=== PATIENT | male | born 1970 | race Caucasian/White ===

== ENCOUNTER 2018-08-30 19:02 | Emergency (ER) | payer BC ==
[2018-08-30] MEDS ORDERED: Nitroglycerin TAB 0.4 MG* 0.4 MG TAB SL ONE (19:37)
[2018-08-30] MEDS ORDERED: Aspirin 81 mg CHEW TAB* 81 MG TAB.CHEW PO ONE (19:37)
--- NOTE | 2018-08-30 19:41 | UC ---
Cardiac HPI - HPI Summary HPI Summary: 2 DAYS OF MIDSTERNAL DULL CHEST PAIN AND INTERMITTENT SENSATION OF HIS HEART POUNDING. HAS ASSOCIATED SHORTNESS OF BREATH BUT DENIES NAUSEA, HEADACHE, SWEATS. PAIN DOES NOT CHANGE WITH ACTIVITY. HE CHECKED HIS BLOOD PRESSURE WITH A WRIST CUFF THIS MORNING AND IT WAS IN THE 200S OVER 100S. REPORTS SIMILAR EPISODES OF CHEST PAIN INTERMITTENTLY OVER THE PAST SEVERAL MONTHS HOWEVER WHEN THIS EPISODE PERSISTED AND HIS BLOOD PRESSURE WAS ELEVATED HE DECIDED TO COME IN. NO OFFICIAL DIAGNOSIS OF HYPERTENSION SO NO MEDS FOR BLOOD PRESSURE. - History of Current Complaint Chief Complaint: UCChestPain Stated Complaint: CHEST PAIN, AND HIGH BLOOD PRESSURE Time Seen by Provider: 08/30/18 19:11 Hx Obtained From: Patient, Family/Electrical Worker - MAUREEN Onset/Duration: Sudden Onset, Lasting Days - 2 DAYS, Still Present Timing: Constant Initial Severity: Moderate Current Severity: Moderate Pain Intensity: 2 Chest Pain Location: Mid Sternal Character: Dull/Aching Aggravating Factor(s): Nothing Alleviating Factor(s): Nothing Associated Signs & Symptoms: Positive: Chest Pain, SOB. Negative: Headaches, Dizziness, Nausea/Vomiting, Cough - Allergy/Home Medications Allergies/Adverse Reactions: Allergies Allergy/AdvReac Type Severity Reaction Status Date / Time No Known Allergies Allergy Verified 08/30/18 19:21 Home Medications: Home Medications Mesalamine DR CAP* [Mesalamine DR CAP* (formerly ASACOL TAB)*] 800 mg PO TID [History Confirmed 08/30/18] Omeprazole CAP (NF) [Prilosec CAP* 20 MG] 20 mg PO DAILY 08/30/18 [History Confirmed 08/30/18] PMH/Surg Hx/FS Hx/Imm Hx Other GI/ History: ULCERATIVE COLITIS - Surgical History Surgical History: Yes Surgery Procedure, Year, and Place: 02/2014 [place] [facility] [place] (AGE 11). 2013 left ear surgery - Family History Known Family History: Positive: Cardiac Disease - DAD - Social History Alcohol Use: Daily Alcohol Amount: 3-4 drinks per day Substance Use Type: None Smoking Status (MU): Former Smoker Amount Used/How Often: RARELY Length of Time of Smoking/Using Tobacco: SOCIALLY SINCE AGE 20 Review of Systems All Other Systems Reviewed And Are Negative: Yes Constitutional: Positive: Negative Skin: Positive: Negative Respiratory: Positive: Negative Cardiovascular: Positive: Palpitations, Chest Pain Gastrointestinal: Positive: Negative Neurological: Positive: Negative Physical Exam Triage Information Reviewed: Yes Appearance: Well-Appearing, No Pain Distress, Well-Nourished Vital Signs: Initial Vital Signs Temp 97.8 F 08/30/18 19:06 Pulse 77 08/30/18 19:06 Resp 16 08/30/18 19:06 BP 163/111 08/30/18 19:06 Pulse Ox 98 08/30/18 19:06 Vital Signs Reviewed: Yes Eyes: Positive: Conjunctiva Clear ENT: Positive: Hearing grossly normal, Pharynx normal, TMs normal - LEFT TM WITH POSTSURGICAL CHANGES Neck: Positive: Supple, Nontender, No Lymphadenopathy Respiratory Exam: Normal Cardiovascular Exam: Normal Abdomen Description: Positive: Soft Musculoskeletal: Positive: No Edema Neurological: Positive: Alert Psychological: Positive: Age Appropriate Behavior Skin: Negative: Rashes Diagnostics - EKG Cardiac Rate: NL - 73 BPM Cardiac Rhythm: Sinus: Normal Ectopy: None ST Segment: Normal - Clinical Impression Provider Diagnosis: Chest pain - Physician Notifications Discussed Patient Care With: Gopal Clemente - [place] [facility] [place] Time Discussed With Above Provider: 19:40 Instructed by Provider To: MD Will See In ED Discharge - Sign-Out/Discharge Documenting (check all that apply): Patient Departure All imaging exams completed and their final reports reviewed: No Studies - Discharge Plan Condition: Stable Disposition: TRANS HIGHER LVL OF CARE FAC Referrals: Piyush Davis MD [Primary Care Provider] - - Billing Disposition and Condition Condition: STABLE Disposition: Trans Higher Lvl of Care Fac
[2018-08-30 19:51] VITALS: BP 168/117
== END 2018-08-30 19:50 | disposition short-term general hospital (02) ==
LOC: UCEAST 19:02
DX: R07.89 Other chest pain (principal); Z87.891 Personal history of nicotine dependence
CPT/HCPCS: 99213; A9270-GY; G0463

== ENCOUNTER 2018-08-30 20:14 | Emergency (ER) | payer BC ==
[2018-08-30] MEDS ORDERED: Aspirin 81 mg CHEW TAB* 81 MG TAB.CHEW PO ONE (20:17)
--- NOTE | 2018-08-30 20:22 | ED ---
HPI Chest Pain - HPI Summary HPI Summary: This patient is a 48 year old M brought in by ambulance to [facility] with a chief complaint of mild, intermittent mid-sternal chest discomfort since 2 weeks ago. The patient reports that the pain became more constant in the last few days. The patient notes that he wears a wrist BP monitor and it was showing an elevated BP today. The patient rates the pain 2/10 in severity. Symptoms aggravated by nothing. Symptoms alleviated by nothing. Patient has hx cholecystectomy. - History of Current Complaint Hx Obtained From: Patient Onset/Duration: Started Weeks Ago, Atraumatic, Still Present, Worse Since - a few days ago Timing: Constant, Lasting Weeks Initial Severity: Mild Current Severity: Mild Chest Pain Location: Mid Sternal Chest Pain Radiates: No Aggravating Factor(s): Nothing Alleviating Factor(s): Nothing Associated Signs and Symptoms: Positive: Chest Pain - chest discomfort, Other: - elevated BP - Allergy/Home Medications Allergies/Adverse Reactions: Allergies Allergy/AdvReac Type Severity Reaction Status Date / Time No Known Allergies Allergy Verified 08/30/18 19:21 Home Medications: Home Medications Omeprazole 20 mg PO DAILY 08/30/18 [History Confirmed 08/30/18] PMH/Surg Hx/FS Hx/Imm Hx Endocrine/Hematology History: Denies: Hx Diabetes, Hx Thyroid Disease Cardiovascular History: Denies: Hx Hypertension Respiratory History: Denies: Hx Asthma, Hx Chronic Obstructive Pulmonary Disease (COPD) GI History: Reports: Other GI Disorders - COLITIS, CONTROL WITH MEDS Denies: Hx Ulcer Musculoskeletal History: Reports: Other Musculoskeletal History - RIGHT SHOULDER PAIN-UNKNOWN ETIOLOGY Sensory History: Reports: Hx Contacts or Glasses - CONTACTS, WILL WEAR GLASSES DAY OF SURGERY Denies: Hx Hearing Aid Opthamlomology History: Reports: Hx Contacts or Glasses - CONTACTS, WILL WEAR GLASSES DAY OF SURGERY Psychiatric History: Reports: Hx Anxiety - NO MEDS - Surgical History Surgery Procedure, Year, and Place: 02/2014 LAPAROSCOPIC APPENDECTOMY, [facility] – [place]. 1980 LEFT EAR SURGERY (AGE 11). 2013 left ear surgery. Cholecystectomy Hx Anesthesia Reactions: No Infectious Disease History: Denies: Hx Hepatitis, Hx Human Immunodeficiency Virus (HIV) - Family History Known Family History: Positive: Cardiac Disease - DAD, Diabetes - Dad - Social History Alcohol Use: Daily Alcohol Amount: 3-4 drinks per day Substance Use Type: Reports: None Smoking Status (MU): Former Smoker Amount Used/How Often: RARELY Length of Time of Smoking/Using Tobacco: SOCIALLY SINCE AGE 20 Review of Systems Negative: Fever Negative: Epistaxis Positive: Chest Pain - mid sternal chest discomfort, Other - elevated BP via wrist monitor Negative: Cough Negative: Vomiting All Other Systems Reviewed And Are Negative: Yes Physical Exam - Summary Physical Exam Summary: VITAL SIGNS: Reviewed. GENERAL: Patient is a well-developed and nourished MALE who is lying comfortable in the stretcher. Patient is not in any acute respiratory distress. HEAD AND FACE: No signs of trauma. No ecchymosis, hematomas or skull depressions. No sinus tenderness. EYES: PERRLA, EOMI x 2, No injected conjunctiva, no nystagmus. EARS: Hearing grossly intact. Ear canals and tympanic membranes are within normal limits. MOUTH: Oropharynx within normal limits. NECK: Supple, trachea is midline, no adenopathy, no JVD, no carotid bruit, no c- spine tenderness, neck with full ROM. CHEST: Symmetric, no tenderness at palpation LUNGS: Clear to auscultation bilaterally. No wheezing or crackles. CVS: Regular rate and rhythm, S1 and S2 present, no murmurs or gallops appreciated. ABDOMEN: Soft, non-tender. No signs of distention. No rebound no guarding, and no masses palpated. Bowel sounds are normal. EXTREMITIES: FROM in all major joints, no edema, no cyanosis or clubbing. NEURO: Alert and oriented x 3. No acute neurological deficits. Speech is normal and follows commands. SKIN: Dry and warm Triage Information Reviewed: Yes Vital Signs Reviewed: Yes Diagnostics - Laboratory Result Diagrams: 08/30/18 20:26 08/30/18 20:26 Lab Statement: Any lab studies that have been ordered have been reviewed, and results considered in the medical decision making process. - Radiology CXR Radiology Interpretation Completed By: ED Physician - Dr. Bourne, pending official report Summary of Radiographic Findings: Negative CXR - EKG 21:28 Cardiac Rate: NL - at 64 bpm EKG Rhythm: Sinus Rhythm ST Segment: Normal Ectopy: None Summary of EKG Findings: Sinus rhythm at [address] elevations and nml axis. Chest Pain Course/Dx - Course Assessment/Plan: Patient is a 48-year-old male who presents to the emergency department via ambulance with a chief complaint of having chest pain. Patient has no past medical history except for GERD. Family history significant for cardiac muscular disorders after the age of 60. The pain is not associated with exertion, denies any nausea vomiting diaphoresis, shortness of breath or dizziness. Blood work without any significant abnormality except for elevated AST and AST of 149/321 which probably secondary to his alcohol consumption every day. Troponin is 0.01. Chest x-ray impression: No acute pathology. EKG shows a normal sensory or without any sick elevations. Patient was given hydralazine for the high blood pressure. At this point the patient is more hemodynamically stable. The patient will be signed out to Dr. Nevarez to follow with the second troponin is negative the patient can be discharged home. Heart score is equal to 2. - Diagnoses Provider Diagnoses: Chest pain Discharge - Sign-Out/Discharge Documenting (check all that apply): Sign-Out Patient - upon provider shift change pending second troponin Signing out patient TO: Gopal Clemente Patient Received Moderate/Deep Sedation with Procedure: No - Discharge Plan Condition: Good Disposition: HOME Patient Education Materials: Chest Pain (ED) Referrals: Piyush Davis MD [Primary Care Provider] - 3 Days - Billing Disposition and Condition Condition: GOOD Disposition: Home - Attestation Statements Document Initiated by Lindsayibdexter: Yes Documenting Scribe: Jaclyn Murillo Provider For Whom Clare is Documenting (Include Credential): Jayden Bourne MD Scribe Attestation: Jaclyn Olvera scribed for Jayden Bourne MD on 08/31/18 at 1026. Scribe Documentation Reviewed: Yes Provider Attestation: The documentation as recorded by the lindsayibJaclyn renteria accurately reflects the service I personally performed and the decisions made by , Jayden Bourne MD Status of Scribe Document: Viewed
[2018-08-30 20:33] LABS: ABS Basophils 0.1 10^3/ul (0-0.2); ABS Eosinophils 0.7 10^3/ul (0-0.6); ABS Lymphocytes 1.8 10^3/ul (1.0-4.8); ABS Monocytes 0.8 10^3/ul (0-0.8); ABS Neutrophils 4.9 10^3/ul (1.5-7.7); ABS Nucleated RBC 0 10^3/ul; Eosinophil % 7.9 %; Hematocrit 49 % (36-46); Hemoglobin 16.8 g/dL (14.0-18.0); Mean Corpuscular HGB Conc 35 g/dL (31-36); Mean Corpuscular Hemoglobin 34 pg (27-31); Mean Corpuscular Volume 98 fL (80-94); Mean Platelet Volume 7.7 fL (7.4-10.4); Nucleated Red Blood Cells % 0.1; Platelet Count 209 10^3/uL (150-450); Red Blood Count 4.97 10^6 /uL (4.18-5.48); Red Cell Distribution Width 13 % (10.5-15); White Blood Count 8.2 10^3/uL (3.5-10.8)
[2018-08-30 20:50] LABS: Albumin 4.3 g/dL (3.2-5.2); Albumin/Globulin Ratio 1.7 (1-3); BUN/Creatinine Ratio 12.3 (8-20); Calcium 9.2 mg/dL (8.6-10.3); EGFR African American 89.8 (>60); EGFR Non-African American 74.3 (>60); Globulin 2.6 g/dL (2-4); Potassium 3.9 mmol/L (3.5-5.0); Total Bilirubin 0.8 mg/dL (0.2-1.0); Total Protein 6.9 g/dL (6.4-8.9)
[2018-08-30 20:53] LABS: Troponin I 0.01 ng/mL (<0.04)
[2018-08-30 20:56] LABS: CKMB ng/mL 2.3 ng/mL (0.6-6.3)
[2018-08-30] MEDS ORDERED: Ketorolac INJ* 30 MG/ML 1 ML VIAL IV PUSH ONE (21:06)
[2018-08-30 21:10] LABS: TSH (Thyroid Stimulating Horm) 2.6 mcIU/mL (0.34-5.60)
[2018-08-30] MEDS ORDERED: hydrALAZINE IV* 20 MG/ML VIAL IV SLOW PU ONE (21:37)
--- NOTE | 2018-08-30 22:21 | ED ---
Progress - Progress Note Progress Note: This patient was signed out from Dr. Bourne to Dr. Clemente upon shift change, pending second troponin. Second troponin was 0.01. This patient will be discharged with dx of CP. Patient understands and agrees with this plan. Course/Dx - Course Course Of Treatment: This patient was signed out from Dr. Bourne to Dr. Clemente upon shift change, pending second troponin. Second troponin was 0.01. This patient will be discharged with dx of CP. Patient understands and agrees with this plan. - Diagnoses Provider Diagnoses: Chest pain Discharge - Sign-Out/Discharge Documenting (check all that apply): Patient Departure - discharge Patient Received Moderate/Deep Sedation with Procedure: No - Discharge Plan Condition: Good Disposition: HOME Patient Education Materials: Chest Pain (ED) Referrals: Piyush Davis MD [Primary Care Provider] - 3 Days - Attestation Statements Document Initiated by Scribe: Yes Documenting Scribe: Santos Crane Provider For Whom Scribe is Documenting (Include Credential): Gopal Clemente MD Scribe Attestation: I, Santos Crane, scribed for Gopal Clemente MD on 08/30/18 at 2317. Status of Scribe Document: Ready
[2018-08-30 23:42] VITALS: BP 154/93
== END 2018-08-30 23:41 | disposition home or self-care (01) ==
LOC: ED 20:14
DX: R07.89 Other chest pain (principal); R03.0 Elevated blood-pressure reading, without diagnosis of hypertension; K21.9 Gastro-esophageal reflux disease without esophagitis; Z90.49 Acquired absence of other specified parts of digestive tract; Z90.89 Acquired absence of other organs; Z82.49 Family history of ischemic heart disease and other diseases of the circulatory system; Z83.3 Family history of diabetes mellitus; Z87.891 Personal history of nicotine dependence
CPT/HCPCS: 36415; 71045; 80053; 82550; 82553; 83605; 83880; 84443; 84484; 85025; 93005; 96374; 96375; 99214; 99284; G0463; J0360; J1885